=== PATIENT | female | born 1975 | race Two or more races ===

== ENCOUNTER 2025-04-09 18:51 | Emergency (ER) | payer MEDICAID, SELFPAY ==
[2025-04-09 18:52] VITALS: BMI 26.6
[2025-04-09 19:12] VITALS: BP 149/85; PULSE 76; RESP 18; TEMP 36.6; O2SAT 97
--- NOTE | 2025-04-09 19:34 | PD.EDSKIN ---
ED Skin Abcess FB-RME/HPI General Chief complaint: Skin/Abscess/Foreign Body Stated complaint: SORE ON LET SIDE FOREHEAD X 3 DAYS Time Seen by Provider: 04/09/25 19:10 Arrival date/time: 04/09/25 18:51 This is a case of 50-year-old female with history of diabetes came in in the emergency room due to maculopapular rashes on the forehead and scalp secondary to possible insect bite or spider bite patient noted to have some itchiness and some redness for 3 days persistence of the symptoms this patient decided to start consult here in the emergency room no shortness of breath patient can speak full sentences no facial or throat swelling Limitations: no limitations Related Data Previous Rx's ?Medication ?Instructions ?Recorded diphenhydramine HCl 25 mg capsule 25 mg PO TID PRN allergic reaction 04/09/25 (Benadryl) #20 caps doxycycline monohydrate 100 mg 100 mg PO BID #20 caps 04/09/25 capsule hydrocortisone 1 % topical cream 1 applic topical BID #1 ea 04/09/25 mupirocin 2 % topical ointment 1 applic topical BID #1 tube 04/09/25 Allergies Allergy/AdvReac Type Severity Reaction Status Date / Time No Known Allergies Allergy Verified 04/09/25 18:54 Review of Systems Review of Systems Systems Reviewed: All systems reviewed, normal except as documented Constitutional Constitutional: Reports system reviewed and no additional complaints, except as documented and Reports as per HPI Cardiovascular Cardiovascular: Reports system reviewed and no additional complaints, except as documented and Reports as per HPI Respiratory Respiratory: Reports system reviewed and no additional complaints, except as documented and Reports as per HPI Gastrointestinal Gastrointestinal: Reports system reviewed and no additional complaints, except as documented and Reports as per HPI Genitourinary Genitourinary: Reports system reviewed and no additional complaints, except as documented and Reports as per HPI Integumentary/Breasts Skin/Breast: Reports other (Maculopapular rash) Neurologic Neurologic: Reports system reviewed and no additional complaints, except as documented and Reports as per HPI Past Medical History Social History SMOKING STATUS: Never smoker ED Exam General Limitations: Present no limitations General appearance: Present alert, in no apparent distress and other (Patient is awake alert oriented not in distress nontoxic looking well-hydrated well-nourished) Head Head exam: Present atraumatic, normocephalic and normal inspection Eye Eye exam: Present normal appearance, PERRL and EOMI ENT ENT exam: Present normal exam, normal oropharynx, mucous membranes moist and other (No drooling of saliva patient can speak full sentences no facial or throat swelling) Neck Neck exam: Present normal inspection, full ROM and trachea midline; Absent tenderness, meningismus, lymphadenopathy or thyromegaly Chest Chest inspection: Present normal inspection and symmetric chest wall rise; Absent tenderness Respiratory Respiratory exam: Present normal lung sounds bilaterally; Absent respiratory distress, wheezes, stridor, accessory muscle use or prolonged expiratory phase Cardiovascular Cardiovascular exam: Present regular rate, normal rhythm and normal heart sounds; Absent bradycardia, tachycardia, irregular rhythm, systolic murmur or diastolic murmur Abdominal Exam Abdominal exam: Present soft and normal bowel sounds Extremities Exam Extremities exam: Present normal inspection and full ROM Back Exam Back exam: Present normal inspection and full ROM Neurological Exam Neurological exam: Present alert, oriented X3, CN II-XII intact, normal gait and reflexes normal; Absent motor sensory deficit Psychiatric Psychiatric exam: Present normal affect and normal mood Skin Skin exam: Present warm, dry, intact, normal color and other (Noted a multiple maculopapular rashes on the forehead scalp and neck redness not abscess not cellulitis and nonblanching) Course Quality Measures none Orders Category Date Time Status Dexamethasone Inj [Decadron Inj] Med 04/09/25 19:26 Discontinued 10 mg IM X1 ONE DiphenhydrAMINE INJ [Benadryl Inj] Med 04/09/25 19:26 Discontinued 25 mg IM X1 ONE Famotidine [Pepcid] Med 04/09/25 19:26 Discontinued 40 mg PO X1 ONE Vital Signs Vital signs: Vital Signs Temperature 98 F 04/09/25 19:12 Pulse Rate 76 04/09/25 19:12 Respiratory Rate 18 04/09/25 19:12 Blood Pressure 149/85 H 04/09/25 19:12 Pulse Oximetry (%) 97 04/09/25 19:12 Oxygen Delivery Method Room Air 04/09/25 19:12 Oxygen saturation is 97% in room air Skin / Abscess / Foreign Body MDM Narrative MDM Narrative:: This is a case of 50-year-old female with history of diabetes came in in the emergency room due to maculopapular rashes on the forehead and scalp secondary to possible insect bite or spider bite patient noted to have some itchiness and some redness for 3 days persistence of the symptoms this patient decided to start consult here in the emergency room no shortness of breath patient can speak full sentences no facial or throat swelling physical examination patient is awake alert oriented not in distress nontoxic looking well-hydrated well-nourished no signs and symptoms of angioedema no signs and symptoms of anaphylaxis no angioedema no drooling of saliva patient can speak full sentences no throat or facial swelling clear breath sound noted maculopapular rashes on the forehead scalp and neck patient was given Benadryl dexamethasone and Pepcid which patient condition markedly improved she was discharged with doxycycline to prevent infection hydrocortisone cream and mupirocin ointment and Benadryl for itchiness patient will follow-up with PCP in 2 days for reevaluation return precaution to the ER was advised Patient was discharged with comfortable condition walking with stable gait. Patient verbalized no further complains explained diagnosis and answered patient question. Patient is comfortable with the proposed management plan including the need to follow up with his/her primary care physician and any specialist if applicable Discussed patient for any urgent condition or worsening sx, He/She needed to go to emergency room immediately or call 911. Patient acknowledge the responsibility to follow up as instructed and to monitor her/his symptoms. For any persistence of the symptoms for more than 3-5 days return precaution advised. Discussed the result of the test and was given printed discharge instruction Patient data External records reviewed:: [facility] previous records Clinical information provided by:: patient Social determinants that could affect healthcare access:: none Patient has the following chronic illnesses:: None How is presenting disease/condition affected by chronic disease/condition?: no chronic disease Evaluation data The following diagnostics were reviewed and interpreted by me:: other (specify) Lab and/or radiology exams considered but not ordered:: Reviewed Interpretation Summary: Reviewed Medications / Prescriptions Medications or Prescriptions considered but not ordered:: Given Medication administrations:: Medication Administration History Discontinued Medications Dexamethasone Sodium Phosphate (Dexamethasone Sod Phos Inj 10 Mg/Ml Vial) 10 mg IM X1 ONE Stop: 04/09/25 19:27 Diphenhydramine HCl (Diphenhydramine Inj 50 Mg/Ml Vial) 25 mg IM X1 ONE Stop: 04/09/25 19:27 Famotidine (Famotidine 20 Mg Tablet) 40 mg PO X1 ONE Stop: 04/09/25 19:27 Given Consultations Consultation(s) initiated? (list below): No Diagnosis Skin/Abscess Differential Diagnosis: abscess of skin or subcutaneous tissue, cellulitis, insect bites and contact dermatitis Most likely diagnosis given after review of the tests above:: Insect bite allergy stings Admission Indicated Admission indicated?: not indicated Explain why admission is indicated or not indicated:: Not indicated Admission Request Was there a request for admission?: No Admission Attestation Admission request attestation: Not indicated Disposition Plan Disposition Plan: Discharge Discharge Attestation Discharge Attestation: The patient and all family members were given an opportunity to ask questions and understood the discharge instructions. Discharge instructions specifically effects, indications for sooner follow up or return to the emergency department, and the expected course of current diagnosis. Patient condition: Stable Discharge Plan Plan Patient Disposition: HOME (Self Care) Patient condition on transfer: Stable Prescriptions/Referrals Prescriptions/Med Rec: New doxycycline monohydrate 100 mg capsule 100 mg PO BID Qty: 20 0RF hydrocortisone 1 % cream 1 applic topical BID Qty: 1 0RF mupirocin 2 % ointment 1 applic topical BID Qty: 1 0RF diphenhydramine HCl [Benadryl] 25 mg capsule 25 mg PO TID PRN (Reason: allergic reaction) Qty: 20 0RF Problem List Clinical Impression: Allergy to insect bites and stings Patient/Caregiver Discharge Instructions Education Materials: ED Bite Sting Insect Gen Allergic React Additional Instructions: Follow-up with your primary care physician in 2 days for reevaluation worsening symptoms or any emergent concerns such as redness swelling discharge from the wound pain fever chills return to the emergency room immediately or call 911 finish the course of antibiotic keep the area clean and dry Print Language: Kazakh Stand Alone Forms: Nadiya Award Info., Patient Portal Info Letter PA/AUTO BODY SHOP MANAGER Supervising Physician PA/AUTO BODY SHOP MANAGER Supervising Physician: Dr. Goff
[2025-04-09] MEDS: DEXAMETHASONE SOD PHOS INJ 10 MG/ML VIAL IM (20:02)
[2025-04-09] MEDS: FAMOTIDINE 20 MG TABLET 40 MG PO (20:03)
[2025-04-09 20:04] VITALS: PULSE 72; RESP 20; O2SAT 100
== END 2025-04-09 20:05 | disposition home or self-care (01) ==
PROVIDERS: Emergency Provider Emergency Medicine; PCP Family Medicine
DX: T63.481A Toxic effect of venom of other arthropod, accidental (unintentional), initial encounter (principal); L08.9 Local infection of the skin and subcutaneous tissue, unspecified; W57.XXXA Bitten or stung by nonvenomous insect and other nonvenomous arthropods, initial encounter; Y93.9 Activity, unspecified; Y92.9 Unspecified place or not applicable
CPT/HCPCS: 96372; 99283; J1100; J1200; A9270

== ENCOUNTER 2025-04-12 17:23 | Emergency (ER) | payer MEDICAID, SELFPAY ==
[2025-04-12 18:09] VITALS: BP 131/83; PULSE 69; RESP 18; TEMP 36.5; O2SAT 96
--- NOTE | 2025-04-12 18:49 | EDNOTE_ITS ---
ED Skin Abcess FB-RME/HPI General Chief complaint: Skin/Abscess/Foreign Body Stated complaint: RASH L) SIDE OF FACE & HEAD Time Seen by Provider: 04/12/25 18:32 Arrival date/time: 04/12/25 17:23 48-year-old female who was seen approximately 3 days ago for allergic reaction on the face has returned with worsening symptoms. Patient states that she has been taking the medications as directed however the pain has increased that she has some blurred vision and pain in the left eye. She denies any loss of vision fevers chills ringing in ears dizziness nausea or vomiting. She also denies taking any other medications for symptoms Limitations: no limitations Related Data Previous Rx's ?Medication ?Instructions ?Recorded diphenhydramine HCl 25 mg capsule 25 mg PO TID PRN all ergic reaction 04/09/25 (Benadryl) #20 caps doxycycline monohydrate 100 mg 100 mg PO BID #20 caps 04/09/25 capsule hydrocortisone 1 % topical cream 1 applic topical BID #1 ea 04/09/25 mupirocin 2 % topical ointment 1 applic topical BID #1 tube 04/09/25 oxycodone-acetaminophen 5 mg-325 1 tab PO TID PRN pain #15 tabs 04/12/25 mg tablet (Percocet) valacyclovir 1 gram tablet 1,000 mg PO TID #21 tabs (Valtrex) Allergies Allergy/AdvReac Type Severity Reaction Status Date / Time No Known Allergies Allergy Verified 04/12/25 17:32 Past Medical History Social History SMOKING STATUS: Never smoker ED Exam General Limitations: Present no limitations General appearance: Present alert and in no apparent distress Head Head exam: Present atraumatic, normocephalic and other (left face with vesicular lesions distributed over dermatome from nose to yarsanism no discharge) Eye Eye exam: Present normal appearance, PERRL, EOMI and other (Left sclera mildly erythematous mild clear watery discharge); Absent scleral icterus, nystagmus, periorbital swelling or periorbital tenderness ENT ENT exam: Present normal exam, normal oropharynx and mucous membranes moist Neck Neck exam: Present normal inspection, full ROM and trachea midline Chest Chest inspection: Present normal inspection and symmetric chest wall rise Respiratory Respiratory exam: Present normal lung sounds bilaterally Cardiovascular Cardiovascular exam: Present regular rate, normal rhythm and normal heart sounds Neurological Exam Neurological exam: Present alert, oriented X3 and CN II-XII intact Psychiatric Psychiatric exam: Present normal affect and normal mood Skin Skin exam: Present warm, dry, intact and normal color Course Quality Measures none Orders Category Date Time Status Ashraf Lamp to Bedside X1 Care 04/12/25 18:47 Active Fluorescein Sodium [Bio-Christie] Med 04/12/25 18:47 Discontinued 1 mg LEFT EYE X1 ONE Proparacaine Op Fany 0.5% [Alcaine Op Fany 0.5%] Med 04/12/25 18:47 Discontinued See Dose Instructions LEFT EYE X1 ONE Vital Signs Vital signs: Vital Signs Temperature 97.7 F 04/12/25 18:09 Pulse Rate 69 04/12/25 18:09 Respiratory Rate 18 04/12/25 18:09 Blood Pressure 131/83 H 04/12/25 18:09 Pulse Oximetry (%) 96 04/12/25 18:09 Oxygen Delivery Method Room Air 04/12/25 18:09 PROCEDURES: Ashraf Lamp Exam Left eye: Flourescein uptake:: No Ashraf Lamp Findings: Normal Skin / Abscess / Foreign Body Patient data External records reviewed:: [facility] previous records Clinical information provided by:: patient Social determinants that could affect healthcare access:: none Patient has the following chronic illnesses:: none How is presenting disease/condition affected by chronic disease/condition?: no chronic disease Evaluation data The following diagnostics were reviewed and interpreted by me:: other (specify) (None) Lab and/or radiology exams considered but not ordered:: None Interpretation Summary: N/A Medications / Prescriptions Medications or Prescriptions considered but not ordered:: none Medication administrations:: Medication Administration History Discontinued Medications Fluorescein Sodium (Fluorescein Sod 1 Mg Strp) 1 mg LEFT EYE X1 ONE Stop: 04/12/25 18:48 Proparacaine HCl (Proparacaine Op Fany 0.5% 15 Ml Btl) 0 drop LEFT EYE X1 ONE Stop: 04/12/25 18:48 as above Consultations Consultation(s) initiated? (list below): No Diagnosis Skin/Abscess Differential Diagnosis: herpes zoster, cellulitis, eczema and insect bites Most likely diagnosis given after review of the tests above:: Herpes zoster Admission Indicated Admission indicated?: not indicated Admission Request Was there a request for admission?: No Disposition Plan Disposition Plan: Discharge Discharge Attestation Discharge Attestation: The patient and all family members were given an opportunity to ask questions and understood the discharge instructions. Discharge instructions specifically effects, indications for sooner follow up or return to the emergency department, and the expected course of current diagnosis. Patient condition: Stable Discharge Plan Plan Patient Disposition: HOME (Self Care) Prescriptions/Referrals Prescriptions/Med Rec: New valacyclovir [Valtrex] 1 gram tablet 1,000 mg PO TID Qty: 21 0RF oxycodone-acetaminophen [Percocet] 5-325 mg tablet 1 tab PO TID MDD 4 g APAP PRN (Reason: pain) Qty: 15 0RF No Action doxycycline monohydrate 100 mg capsule 100 mg PO BID Qty: 20 0RF hydrocortisone 1 % cream 1 applic topical BID Qty: 1 0RF mupirocin 2 % ointment 1 applic topical BID Qty: 1 0RF diphenhydramine HCl [Benadryl] 25 mg capsule 25 mg PO TID PRN (Reason: allergic reaction) Qty: 20 0RF Referrals: Zaheer Wong MD [Primary Care Provider, Family Practice] - In 1 week Problem List Clinical Impression: Herpes zoster Patient/Caregiver Discharge Instructions Education Materials: ED Shingles (Herpes Zoster) Additional Instructions: Keep the area clean and dry drink plenty of fluids take medications as directed follow-up with your primary care provider in 1 week for reevaluation. Print Language: Syrian Stand Alone Forms: Nadiya Award Info., Patient Portal Info Letter
[2025-04-12] MEDS: PROPARACAINE OP SOL 0.5% 15 ML BTL LEFT EYE (19:21)
[2025-04-12] MEDS: FLUORESCEIN SOD 1 MG STRP LEFT EYE (19:21)
== END 2025-04-12 19:58 | disposition home or self-care (01) ==
PROVIDERS: Emergency Provider Emergency Medicine; PCP Family Medicine
DX: B02.9 Zoster without complications (principal)
CPT/HCPCS: 99283